=== PATIENT | male | born 1975 | race Caucasian/White ===

== ENCOUNTER 2016-08-12 12:14 | Emergency (ER) | payer OTHER ==
[~2016-08-12] VITALS: Ht 182.9 cm; Wt 131.5 kg
--- NOTE | 2016-08-12 12:25 | ED CARDIAC/CP/PALPITATIONS ---
History of Present Illness General Chief Complaint: Chest Pain Stated Complaint: CP Source: patient, family Exam Limitations: no limitations Vital Signs & Intake/Output Vital Signs & Intake/Output Vital Signs Date Time Temp Pulse Resp B/P Pulse O2 O2 Flow FiO2 Ox Delivery Rate 08/12 1441 98.2 75 16 136/78 98 Room Air 08/12 1308 71 158/67 08/12 1246 140/71 08/12 1241 75 18 143/93 08/12 1220 98.7 71 20 144/92 98 Room Air Allergies Coded Allergies: NO KNOWN ALLERGIES (08/12/16) Reconcile Medications Adalimumab (Humira Pen) 40 MG/0.8 ML PEN.IJ.KIT 1 SYR SC Q2W UNKNOWN ( Reported) Oxycodone HCl/Acetaminophen (Oxycodone-Acetaminophen 10-325) 10 MG-325 MG TABLET 1 TAB PO TID PAIN (Reported) Triage Note: PT TO ED C/O SUDDEN ONSET OF CHEST PAIN THIS AM AROUND 1000 WITH WAKING. WENT TO URGENT CARE AND WAS ADVISED TO COME TO ED FOR ABNORMAL EKG. C/O SOME SOB. PAIN DOES NOT RADIATE, DENIES N/V/D. EKG IN PROGRESS. Triage Nurses Notes Reviewed? yes HPI: Patient woke up this morning at 9:30 and noticed that he had a left sternal chest pressure. Patient states that the pain did not wake him up and that he just noticed it when he woke up. There is no radiation. Since then he is also began to develop a sharp pain just to the right side of the sternum. Again there is no radiation. There are no aggravating or mitigating factors. Patient went to a walk in center and had an EKG which was abnormal so sent in for evaluation. Patient denies any shortness of breath. There is no diaphoresis. There are no aggravating or mitigating factors. The chest pressure is rated as 4 out of 10 and this sharp chest pain is radiating a 5 out of 10. Past History Travel History Traveled to [place] past 21 day No Medical History Any Pertinent Medical History? see below for history Gastrointestinal: ulcerative colitis Musculoskeletal: chronic back pain Surgical History Surgical History: non-contributory Psychosocial History What is your primary language Ghanaian Tobacco Use: Quit >30 days ago ETOH Use: denies use Illicit Drug Use: denies illicit drug use Family History Hx Contributory? No Review of Systems Review of Systems Constitutional: Reports: no symptoms. EENTM: Reports: no symptoms. Respiratory: Reports: no symptoms. Cardiovascular: Reports: see HPI, chest pain. GI: Reports: no symptoms. Genitourinary: Reports: no symptoms. Musculoskeletal: Reports: no symptoms. Skin: Reports: no symptoms. Neurological/Psychological: Reports: no symptoms. Hematologic/Endocrine: Reports: no symptoms. Immunologic/Allergic: Reports: no symptoms. All Other Systems: Reviewed and Negative Physical Exam Physical Exam General Appearance: well developed/nourished, alert, awake, anxious, mild distress Head: atraumatic, normal appearance Eyes: Bilateral: PERRL, EOMI. Ears, Nose, Throat: normal pharynx, normal ENT inspection Neck: normal inspection, supple, full range of motion Respiratory: normal breath sounds, chest non-tender, no respiratory distress, lungs clear Cardiovascular: regular rate/rhythm, normal peripheral pulses Gastrointestinal: normal bowel sounds, soft, non-tender, no organomegaly Back: normal inspection, normal range of motion Extremities: normal inspection, normal capillary refill, normal range of motion, no edema Neurologic/Psych: no motor/sensory deficits, awake, alert, oriented x 3, normal gait, normal mood/affect Skin: intact, normal color, warm/dry Lymphatic: no anterior cervical juan carlos Core Measures ACS in differential dx? Yes ASA ordered for poss ACS? Yes-ordered Severe Sepsis Present: No Septic Shock Present: No Progress Differential Diagnosis: AMI, aortic dissection, atrial fibrillation, cholecystitis, costochondritis, musculoskeletal pain, myocarditis, pericarditis, pneumonia, pneumothorax, pulmonary embolism Plan of Care: Orders Procedure Date/time Status TROPONIN LEVEL 08/12 1534 Complete EKG 08/12 1534 Active EKG 08/12 1300 Active Telemetry/Assistant Food Service Director 08/12 1224 Active TROPONIN LEVEL 08/12 1224 Complete COMPREHENSIVE METABOLIC PANEL 08/12 1224 Complete CBC WITHOUT DIFFERENTIAL 08/12 1224 Complete EKG 08/12 1215 Active Laboratory Tests 08/12/16 1538: Troponin I < 0.01 08/12/16 1235: Anion Gap 14, Estimated GFR > 60, BUN/Creatinine Ratio 10.0, Glucose 93, Calcium 9.4, Total Bilirubin 0.8, AST 49, ALT 81 H, Alkaline Phosphatase 76, Troponin I < 0.01, Total Protein 7.9, Albumin 4.4, Globulin 3.5, Albumin/Globulin Ratio 1.3 , CBC w Diff NO MAN DIFF REQ, RBC 5.70, MCV 87.1, MCH 28.5, RDW 14.8 H, MPV 7.8 , Gran % 50.2, Lymphocytes % 36.8, Monocytes % 10.3 H, Eosinophils % 1.8, Basophils % 0.9, Absolute Granulocytes 4.1, Absolute Lymphocytes 3.0, Absolute Monocytes 0.8 H, Absolute Eosinophils 0.1, Absolute Basophils 0.1, PUBS MCHC 32.7 L Diagnostic Imaging: Viewed by Me: Radiology Read, CT Scan. Discussed w/RAD: Radiology Read, CT Scan. Radiology Impression: PATIENT: JONNY HOUSE PRESENT AGE: 41 PATIENT ACCOUNT NO: [id number] : 76 LOCATION: [facility] ORDERING PHYSICIAN: STEPHANIE AGUIRRE MD SERVICE DATE: 08/12/16 EXAM TYPE: CAT - CTA CHEST-PULMONARY EMBOLISM EXAMINATION: CT PULMONARY EMBOLISM STUDY CLINICAL INFORMATION: Chest pain and shortness of breath. COMPARISON: . TECHNIQUE: Contiguous helical images of the chest were obtained following the administration of IV contrast. Multiplanar reconstructions were performed. MIPS were obtained and reviewed. DLP: 624 mGy-cm. CONTRAST: 95 mL of Optiray 350 were administered without incident. FINDINGS: The heart is of normal size. There is no pericardial effusion. The great vessels are unremarkable. Specifically, there is no pulmonary arterial filling defect. There is no CT evidence for pulmonary embolism. There are no chest wall masses. Review of lung windows demonstrates that there are neither pleural effusions nor pneumothoraces. There are no consolidations. There are no pulmonary parenchymal nodules. Limited evaluation of the upper abdomen demonstrates that the liver is of normal size and diffuse decreased attenuation without focal lesions. There is a moderate-sized hiatal hernia. Normal adrenal glands are identified. There is a 5.2 cm cyst within the right kidney. IMPRESSION: No CT evidence for pulmonary embolism. Hepatic steatosis. Hiatal hernia. DICTATED BY: JOSÉ MIGUEL SIMMS MD DATE/ TIME DICTATED:08/12/161420 FOREST RANGER TECHNICIAN:JANINE DATE/TIME TRANSCRIBED: 08/12/161420 CONFIDENTIAL, DO NOT COPY WITHOUT APPROPRIATE AUTHORIZATION. < Electronically signed in Other Vendor System> SIGNED BY: JOSÉ MIGUEL SIMMS MD 08/12/16 1430 CXR Impression: PATIENT: JONNY HOUSE PRESENT AGE: 41 PATIENT ACCOUNT NO: [id number] : 76 LOCATION: [facility] ORDERING PHYSICIAN: STEPHANIE AGUIRRE MD SERVICE DATE: 08/12/16 EXAM TYPE: RAD - XRY-PORTABLE CHEST XRAY EXAMINATION: XR PORTABLE CHEST CLINICAL INFORMATION: Chest pain. COMPARISON: Chest 12/21/2008. TECHNIQUE: Portable AP view of the chest was obtained. FINDINGS: The lungs are hypoexpanded but clear. The heart size and pulmonary vascularity is normal. No gross bony abnormality seen. IMPRESSION: Unremarkable chest examination. No change from 12/21/2008. DICTATED BY: DEBRA LOPES MD DATE/TIME DICTATED:08/12/161332 FOREST RANGER TECHNICIAN:JANINE DATE/TIME TRANSCRIBED:08/12/161332 CONFIDENTIAL, DO NOT COPY WITHOUT APPROPRIATE AUTHORIZATION. <Electronically signed in Other Vendor System> SIGNED BY: DEBRA LOPES MD 08/12/16 1424 Initial ED EKG: SINUS RHYTHM WITH ISCHEMIC t-WAVE INVERSIONS ANTERIOR LATERALLY THIS IS NEW WHEN COMPARED TO HIS OLD ekg. Prior EKG: changed Repeat EKG: changed (RESOLVED t-WAVE INVERSIONS) Rhythm Strip: normal sinus rhythm Comments: Patient has been seen and evaluated by Dr. Alex. Patient will follow-up in the office. Departure Departure Disposition: HOME OR SELF CARE Condition: Stable Clinical Impression Primary Impression: Chest pain Referrals: LOUIS CASILLAS MD (PCP/Family) JAIRO ROBLES,Randy [facility] Additional Instructions: Take it easy and no strenuous activity. Follow-up with Dr. Alex this week. Take a baby aspirin every day and take the metoprolol as prescribed. Departure Forms: Customer Survey General Discharge Information Prescriptions: Current Visit Scripts Metoprolol Succ XL (Toprol XL) 1 TAB PO DAILY #30 TAB Critical Care Note Critical Care Note Critical Care Time: mins: (45 MIN)
[2016-08-12 12:48] LABS: ABSOLUTE BASOPHIL COUNT 0.1 /CUMM (0.0-0.2); ABSOLUTE EOSINOPHIL COUNT 0.1 /CUMM (0.0-0.7); ABSOLUTE GRANULOCYTE CT 4.1 /CUMM (1.4-6.5); ABSOLUTE MONOCYTE COUNT 0.8 /CUMM (0.10-0.60); BASOPHIL % 0.9 % (0.0-2.0); EOSINOPHIL % 1.8 % (0-5); GRANULOCYTE % 50.2 % (42.2-75.2); HEMATOCRIT 49.6 % (42-52); MEAN CORPUSCULAR HGB 28.5 PG (27.0-31.0); MEAN CORPUSCULAR HGB CONC 32.7 G/DL (33.0-37.0); MEAN CORPUSCULAR VOLUME 87.1 FL (80.0-94.0); MEAN PLATELET VOLUME 7.8 FL (7.4-10.4); PLATELET COUNT 244 /CUMM (130-400); RBC DISTRIBUTION WIDTH 14.8 % (11.5-14.5); WHITE BLOOD CELL COUNT 8.1 /CUMM (4.8-10.8)
--- NOTE | 2016-08-12 13:38 | RADIOLOGY REPORT ---
EXAMINATION: XR PORTABLE CHEST CLINICAL INFORMATION: Chest pain. COMPARISON: Chest 12/21/2008. TECHNIQUE: Portable AP view of the chest was obtained. FINDINGS: The lungs are hypoexpanded but clear. The heart size and pulmonary vascularity is normal. No gross bony abnormality seen. IMPRESSION: Unremarkable chest examination. No change from 12/21/2008.
--- NOTE | 2016-08-12 14:30 | CT SCAN REPORT ---
EXAMINATION: CT PULMONARY EMBOLISM STUDY CLINICAL INFORMATION: Chest pain and shortness of breath. COMPARISON: 12/21/2008. TECHNIQUE: Contiguous helical images of the chest were obtained following the administration of IV contrast. Multiplanar reconstructions were performed. MIPS were obtained and reviewed. DLP: 624 mGy-cm. CONTRAST: 95 mL of Optiray 350 were administered without incident. FINDINGS: The heart is of normal size. There is no pericardial effusion. The great vessels are unremarkable. Specifically, there is no pulmonary arterial filling defect. There is no CT evidence for pulmonary embolism. There are no chest wall masses. Review of lung windows demonstrates that there are neither pleural effusions nor pneumothoraces. There are no consolidations. There are no pulmonary parenchymal nodules. Limited evaluation of the upper abdomen demonstrates that the liver is of normal size and diffuse decreased attenuation without focal lesions. There is a moderate-sized hiatal hernia. Normal adrenal glands are identified. There is a 5.2 cm cyst within the right kidney. IMPRESSION: No CT evidence for pulmonary embolism. Hepatic steatosis. Hiatal hernia.
[2016-08-12] MEDS ORDERED: HUMIRA PEN40 MG/0.8 SC (14:40)
[2016-08-12] MEDS ORDERED: OXYCODONE-ACET1 EAC1 PO (14:41)
[2016-08-12] MEDS ORDERED: TOPROL XL25 M1 PO (16:36)
[2016-08-12 16:45] VITALS: BP 134/85
--- NOTE | 2016-08-12 18:42 | Cons- Cardiology ---
General Information and HPI Consulting Request Date of Consult: 08/12/16 Requested By: Neymar cook MD Reason for Consult: Chest pain Source of Information: patient, family History of Present Illness: Patient woke up this morning at 9:30 and noticed that he had a left sternal chest pressure. Patient states that the pain did not wake him up and that he just noticed it when he woke up. There is no radiation. Since then he is also began to develop a sharp pain just to the right side of the sternum. Again there is no radiation. There are no aggravating or mitigating factors. Patient went to a walk in center and had an EKG which was abnormal so sent in for evaluation. Patient denies any shortness of breath. There is no diaphoresis. There are no aggravating or mitigating factors. The chest pressure is rated as 4 out of 10 and this sharp chest pain is radiating a 5 out of 10. In the ER, the symptoms were dissipating slowly. THe patient was given TNG SL twice, about a half hour apart and the symptoms eventually abated after about 30 -45 minutes.. Subsequently he remained pain free. He denies any prior symptoms and has not had any exertional symptoms. Allergies/Medications Allergies: Coded Allergies: NO KNOWN ALLERGIES (08/12/16) Home Med List: Adalimumab (Humira Pen) 40 MG/0.8 ML PEN.IJ.KIT 1 SYR SC Q2W UNKNOWN ( Reported) Metoprolol Succ XL (Toprol XL) 25 MG TAB 1 TAB PO DAILY CHEST PAIN Oxycodone HCl/Acetaminophen (Oxycodone-Acetaminophen 10-325) 10 MG-325 MG TABLET 1 TAB PO TID PAIN (Reported) Past History Travel History Traveled to [place] past 21 day No Medical History Gastrointestinal: ulcerative colitis Musculoskeletal: chronic back pain Surgical History Surgical History: non-contributory Psychosocial History ETOH Use: denies use Illicit Drug Use: denies illicit drug use Exam & Diagnostic Data Vital Signs and I&O Vital Signs Date Time Temp Pulse Resp B/P Pulse O2 O2 Flow FiO2 Ox Delivery Rate 08/12 1645 62 134/85 08/12 1643 97.7 62 16 134/85 99 Room Air 08/12 1441 98.2 75 16 136/78 98 Room Air 08/12 1308 71 158/67 08/12 1300 Room Air 08/12 1246 140/71 08/12 1241 75 18 143/93 08/12 1220 98.7 71 20 144/92 98 Room Air Intake & Output 08/12 1600 08/12 0800 08/12 0000 08/11 1600 08/11 0808/11 0000 Intake Total Output Total Balance Patient 290 lb Weight Labs/Shahbaz Results: Laboratory Tests 08/12 08/12 1538 1235 Chemistry Sodium (137 - 145 mmol/L) 144 Potassium (3.5 - 5.1 mmol/L) 4.0 Chloride (98 - 107 mmol/L) 102 Carbon Dioxide (22 - 30 mmol/L) 28 Anion Gap (5 - 16) 14 BUN (9 - 20 mg/dL) 10 Creatinine (0.7 - 1.2 mg/dL) 1.0 Estimated GFR (>60 ml/min) > 60 BUN/Creatinine Ratio (7 - 25 %) 10.0 Glucose (65 - 99 mg/dL) 93 Calcium (8.4 - 10.2 mg/dL) 9.4 Total Bilirubin (0.2 - 1.3 mg/dL) 0.8 AST (17 - 59 U/L) 49 ALT (21 - 72 U/L) 81 H Alkaline Phosphatase (< 127 U/L) 76 Troponin I (<0.11 ng/ml) < 0.01 < 0.01 Total Protein (6.3 - 8.2 g/dL) 7.9 Albumin (3.5 - 5.0 g/dL) 4.4 Globulin (1.9 - 4.2 gm/dL) 3.5 Albumin/Globulin Ratio (1.1 - 2.2 %) 1.3 Hematology CBC w Diff NO MAN DIFF REQ WBC (4.8 - 10.8 /CUMM) 8.1 RBC (4.70 - 6.10 /CUMM) 5.70 Hgb (14.0 - 18.0 G/DL) 16.2 Hct (42 - 52 %) 49.6 MCV (80.0 - 94.0 FL) 87.1 MCH (27.0 - 31.0 PG) 28.5 RDW (11.5 - 14.5 %) 14.8 H Plt Count (130 - 400 /CUMM) 244 MPV (7.4 - 10.4 FL) 7.8 Gran % (42.2 - 75.2 %) 50.2 Lymphocytes % (20.5 - 51.1 %) 36.8 Monocytes % (1.7 - 9.3 %) 10.3 H Eosinophils % (0 - 5 %) 1.8 Basophils % (0.0 - 2.0 %) 0.9 Absolute Granulocytes (1.4 - 6.5 /CUMM) 4.1 Absolute Lymphocytes (1.2 - 3.4 /CUMM) 3.0 Absolute Monocytes (0.10 - 0.60 /CUMM) 0.8 H Absolute Eosinophils (0.0 - 0.7 /CUMM) 0.1 Absolute Basophils (0.0 - 0.2 /CUMM) 0.1 PUBS MCHC (33.0 - 37.0 G/DL) 32.7 L Diagnostic Data EKG Results NSR with anterolateral STT changes CXR Results FINDINGS: The lungs are hypoexpanded but clear. The heart size and pulmonary vascularity is normal. No gross bony abnormality seen. IMPRESSION: Unremarkable chest examination. No change from 12/21/2008. Other Results Chest CTA: IMPRESSION: No CT evidence for pulmonary embolism. Hepatic steatosis. Hiatal hernia. Assessment/Plan Assessment/Plan Assessment: 1. CHest pain syndrome 2. Abnormal ECG 3. Hiatal Hernia 4. Right renal cyst 5. History of prior rhabdomyolysis Recommendations: - Discussed at length with the patient and his mother. - I believe that the patient's symptoms are unlikely to be cardiac related but this cannot be totally excluded without further evaluation. - Await second troponis and followup ECG. - If these are normal, I believe that the patient can be safely discharged for further evaluation as an outpatient. - If discharged, the patient should be started on ASA 81 daily and Metoprolol 25 daily at discharge - Fasting lipid profile as outpatient - Outpatient echocardiogram and pharmacologic nuclear stress test to be scheduled - Outpatient followup with me. - The patient understands that he is to limit his activities until the testing is complete. He may return to work. - If there are any recurrent symptoms, the patient will return to the ER. - Script for TNG 0.4 mg SL tabs given. Consult Acknowledgment - Thank you for your consult request.
== END 2016-08-12 16:54 ==
LOC: ERH 12:14
PROVIDERS: Emergency Medicine
DX: R07.89 Other chest pain (principal)
CPT/HCPCS: 93005; 93010; J3490

== ENCOUNTER 2016-08-14 08:05 | Observation (INO) | payer OTHER ==
[~2016-08-14] VITALS: Ht 182.9 cm; Wt 131.5 kg
[~2016-08-14 08:05] MED LIST: HUMIRA PEN40 MG/0.8 SC; OXYCODONE-ACET1 EAC1 PO; TOPROL XL25 M1 PO
--- NOTE | 2016-08-14 08:10 | NUR ---
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 DENIES SOB. +NAUSEA. EKG IN PROGRESS.
--- NOTE | 2016-08-14 08:27 | NUR ---
PT STATES HIS PAIN HAS SUBSIDED AT THIS TIME PT IS SINUS ON THE MONITOR HR 68
--- NOTE | 2016-08-14 08:29 | ED CARDIAC/CP/PALPITATIONS ---
History of Present Illness General Chief Complaint: Chest Pain Stated Complaint: CP Source: patient, old records Exam Limitations: no limitations Vital Signs & Intake/Output Vital Signs & Intake/Output Vital Signs Date Time Temp Pulse Resp B/P Pulse O2 O2 Flow FiO2 Ox Delivery Rate 08/15 0800 Room Air 08/15 0800 98.3 60 18 114/70 95 Room Air 08/14 2346 97.8 64 20 104/68 97 Room Air 08/14 1603 98.3 63 20 100/74 98 Room Air 08/14 1508 58 18 120/75 97 Room Air 08/14 1317 97.0 72 20 111/70 96 Room Air 08/14 1229 97.6 08/14 1209 99.0 80 20 121/73 96 Room Air 08/14 1149 97.8 69 16 128/75 98 Room Air 08/14 1146 97.8 08/14 1126 80 143/78 08/14 1111 97.8 70 20 94 Room Air 08/14 0959 97.0 80 18 124/68 96 Room Air ED Intake and Output 08/15 0000 08/14 1200 Intake Total 400 0 Output Total Balance 400 0 Intake, Oral 400 0 Patient 290 lb 290 lb Weight Allergies Coded Allergies: NO KNOWN ALLERGIES (08/12/16) Triage Note: 41 Y/O MALE C/O L SIDED CHEST PAIN; 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 WAS MOHANYANET'D IN ED SAT FOR SAME AND STATES ACCOUNTANT COST WAS SUPPOSED TO CALL HIM TODAY FOR F/U. DENIES SOB. +NAUSEA. EKG IN PROGRESS. Triage Nurses Notes Reviewed? yes HPI: Patient is a 41 year old male presents complaining of chest pain. Pain onset approximately 1.5 hours ago. Pain lasted for approximately 45 minutes then resolved. Pain is currently 0 out of 10. No exacerbating factors at that time Patient took 81 mg of aspirin after the onset of the pain. Associated nausea and headache. Patient was seen in the emergency department 2 days ago for similar symptoms. Patient had 2 troponins, a CTA pulmonary embolism rule out, cardiology consultation by Dr. Alex. Patient was administered metoprolol in the emergency department and provided a prescription. Patient reports that he was vomiting throughout Sunday evening so he did not take the metoprolol again. Patient denies dyspnea, palpitations, lower extremity pain/swelling, cocaine use. Patient's grandfather with history of coronary artery disease, patient believes that his grandfather was elderly at the onset of his heart disease. (GUEVARA SCHREIBER) Reconcile Medications Adalimumab (Humira Pen) 40 MG/0.8 ML PEN.IJ.KIT 1 SYR SC Q2W UNKNOWN ( Reported) Aspirin (Aspirin*) 81 MG TAB.CHEW 1 TAB PO DAILY heart (Reported) Metoprolol Succ XL (Toprol XL) 25 MG TAB 1 TAB PO DAILY CHEST PAIN Oxycodone HCl/Acetaminophen (Oxycodone-Acetaminophen 10-325) 10 MG-325 MG TABLET 1 TAB PO TID PAIN (Reported) (LIZETTE ROBLES,DENISE) Past History Travel History Traveled to [place] past 21 day No Medical History Any Pertinent Medical History? see below for history Neurological: NONE EENT: NONE Cardiovascular: NONE Respiratory: NONE Gastrointestinal: hiatal hernia, ulcerative colitis Hepatic: NONE Renal: NONE Musculoskeletal: chronic back pain Psychiatric: NONE Endocrine: NONE Blood Disorders: NONE Cancer(s): NONE HOME INSPECTOR/Reproductive: NONE Surgical History Surgical History: non-contributory Psychosocial History What is your primary language Danish Tobacco Use: Quit >30 days ago Family History Hx Contributory? No (GUEVARA SCHREIBER) Review of Systems Review of Systems Constitutional: Denies: chills, fever. EENTM: Reports: no symptoms. Respiratory: Denies: cough, short of breath. Cardiovascular: Reports: see HPI. GI: Reports: nausea (none currently), vomiting (none currently). Genitourinary: Reports: no symptoms. Musculoskeletal: Reports: no symptoms. Skin: Reports: no symptoms. Neurological/Psychological: Reports: no symptoms, headache (none currently). Hematologic/Endocrine: Reports: no symptoms. Immunologic/Allergic: Reports: no symptoms. (GUEVARA SCHREIBER) Physical Exam Physical Exam General Appearance: alert, awake Head: atraumatic, normal appearance Eyes: Bilateral: normal appearance, PERRL, EOMI. Ears, Nose, Throat: normal pharynx, normal ENT inspection, hearing grossly normal Neck: normal inspection, supple, full range of motion Respiratory: normal breath sounds, chest non-tender, no respiratory distress, lungs clear Cardiovascular: regular rate/rhythm (no appreciable murmur) Peripheral Pulses: 2+ radial (R), 2+ radial (L) Gastrointestinal: mild left upper quadrant tenderness Back: normal inspection, normal range of motion Extremities: normal inspection, normal capillary refill, normal range of motion, no edema Neurologic/Psych: no motor/sensory deficits, awake, alert, oriented x 3, normal gait, normal mood/affect Skin: intact, normal color, warm/dry Core Measures ACS in differential dx? Yes ASA ordered for poss ACS? Yes-ordered Severe Sepsis Present: No Septic Shock Present: No (CINDY CATHERINE,GUEVARA) Progress Differential Diagnosis: AMI, aortic dissection, atrial fibrillation, cholecystitis, costochondritis, hyperventilation, musculoskeletal pain, myocarditis, pancreatitis, pericarditis, pneumonia, pneumothorax, pulmonary embolism, PUD/GERD, unstable angina, HIATAL HERNIA Plan of Care: Orders Procedure Date/time Status Nothing by Mouth 08/15 B Active STRESS TEST W/NUCLEAR IMAGING 08/15 0800 Active LIPID PANEL 08/15 0600 Complete CBC WITHOUT DIFFERENTIAL 08/15 0600 Complete BASIC ELECTROLYTES PLUS BUN&CR 08/15 0600 Complete Heart Healthy Diet 08/14 L Complete TROPONIN LEVEL 08/14 2030 Complete EKG 08/14 2030 Active Teach/Educate 08/14 1557 Active Pain Treatment and Response 08/14 1557 Active Nutritional Intake, Monitor 08/14 1557 Active Isolation 08/14 1557 Active Patient Care Conference 08/14 1557 Active Activity/Ambulation 08/14 1557 Active TROPONIN LEVEL 08/14 1430 Complete EKG 08/14 1430 Active Pathway - chart 08/14 0957 Active Pathway - chart 08/14 0949 Active Intake & Output 08/14 0828 Active THYROID STIMULATING HORMONE 08/14 0822 Complete CREATINE PHOSPHOKINASE 08/14 0822 Complete Saline Lock 08/14 UNK Active House Staff 08/14 UNK Active Lab Add-on Test 08/14 UNK Active VTE Mechanical Prophylaxis 08/14 UNK Active Current Medications Sig/Godwin Start time Last Medication Dose Stop Time Status Admin Metoprolol Succinate 25 MG DAILY 08/15 1000 AC (Toprol XL) Laboratory Tests 08/15/16 0645: Anion Gap 9, Estimated GFR > 60, BUN/Creatinine Ratio 14.4, Triglycerides 146, Cholesterol 163, LDL Cholesterol, Calc 106, HDL Cholesterol 28 L, Cholesterol/ HDL Ratio 6 H, CBC w Diff NO MAN DIFF REQ, RBC 5.33, MCV 87.0, MCH 28.5, RDW 14.7 H, MPV 7.8, Gran % 49.1, Lymphocytes % 37.5, Monocytes % 10.3 H, Eosinophils % 2.3, Basophils % 0.8, Absolute Granulocytes 4.1, Absolute Lymphocytes 3.1, Absolute Monocytes 0.9 H, Absolute Eosinophils 0.2, Absolute Basophils 0.1, PUBS MCHC 32.8 L 08/14/16 2030: Troponin I < 0.01 08/14/16 1430: Troponin I < 0.01 08/14/2016 9:03:44 AM: Discussed with Dr. Lovell covering for Dr. Alex: Recommends putting patient in for telemetry observation, serial EKGs, serial cardiac enzymes, obtain a stress test. 08/14/2016 9:31:39 AM: Results discussed with patient. Plan for telemetry observation discussed with the patient and his . Patient agreeable to plan. (GUEVARA SCHREIBER) Initial ED EKG: normal axis, normal intervals, normal p-waves, normal QRS complex, normal sinus rhythm, nonspecific ST T wave chg, no acute changes compared to previous ekg Prior EKG: unchanged Rhythm Strip: normal sinus rhythm (GUEVARA SCHREIBER) Departure Departure Time of Disposition: 926 Disposition: STILL A PATIENT Condition: Stable Clinical Impression Primary Impression: Chest pain Qualifiers: Chest pain type: unspecified Qualified Code: R07.9 - Chest pain, unspecified Referrals: LOUIS CASILLAS MD (PCP/Family) Departure Forms: Customer Survey General Discharge Information Observation Note Spoke With: ALYSA LOVELL MD Physician Advisor Notified: CHRISTINE ROBLES,CARLOS [address] Place Patient In: Non-ED OBS Care Area (consulted Dr. Baker) Rationale for Observation: My rational for observation is as follows: serial ekg, serial troponins, stress test. (GUEVARA SCHREIBER) PA/STRATEGIES ANALYST Co-Sign Statement Statement: ED Attending supervision documentation- [] I saw and evaluated the patient. I have also reviewed all the pertinent lab results and diagnostic results. I agree with the findings and the plan of care as documented in the PA's/STRATEGIES ANALYST's documentation. [X] I have reviewed the ED Record and agree with the PA's/STRATEGIES ANALYST's documentation. [] Additions or exceptions (if any) to the PAs/STRATEGIES ANALYST's note and plan are summarized below: [] (LIZETTE ROBLES,DENISE) Critical Care Note Critical Care Note Critical Care Time: non-applicable (CINDY CATHERINE,GUEVARA)
[2016-08-14 08:40] LABS: ABSOLUTE BASOPHIL COUNT 0 /CUMM (0.0-0.2); ABSOLUTE EOSINOPHIL COUNT 0.2 /CUMM (0.0-0.7); ABSOLUTE GRANULOCYTE CT 3.4 /CUMM (1.4-6.5); ABSOLUTE LYMPH COUNT 3.1 /CUMM (1.2-3.4); ABSOLUTE MONOCYTE COUNT 0.7 /CUMM (0.10-0.60); BASOPHIL % 0.7 % (0.0-2.0); EOSINOPHIL % 2.3 % (0-5); HEMATOCRIT 46.4 % (42-52); MEAN CORPUSCULAR HGB 28.9 PG (27.0-31.0); MEAN CORPUSCULAR HGB CONC 33.5 G/DL (33.0-37.0); MEAN CORPUSCULAR VOLUME 86.2 FL (80.0-94.0); MEAN PLATELET VOLUME 7.7 FL (7.4-10.4); PLATELET COUNT 221 /CUMM (130-400); RBC DISTRIBUTION WIDTH 14.3 % (11.5-14.5); RED BLOOD CELL CT 5.39 /CUMM (4.70-6.10); WHITE BLOOD CELL COUNT 7.3 /CUMM (4.8-10.8)
--- NOTE | 2016-08-14 09:04 | NUR ---
PT TOOK ASA 81 MG THIS AM GIVEN ADDITIONAL ASA RESTING COMFROTABLY AT THIS TIME DENIES PAIN
[2016-08-14] MEDS ORDERED: ASPIRIN81 M4 PO (09:39)
--- NOTE | 2016-08-14 09:41 | History & Physical ---
[facility] 08[facility] 0940: General Information and HPI MD Statement: I have seen and personally examined JONNY HOUSE and documented this H&P. The patient is a 41 year old M who presented with a patient stated chief complaint of [Chest pain]. Source of Information: patient, old records Exam Limitations: no limitations History of Present Illness: is a 41 yo man with PMHx. of ulcerative colitis, hiatal hernia, chronic back pain presented to ED with a c/o of chest pain. Patient report that his chest pain started today at 7:30 am while he was driving to work, he was't involved in any sternous activity, pain is about 8/10 in severity, pressure on the left side and sharp on left, radiating to the back, associated with mild SOB, clammy hand, overnight he felt heart racing and sweating. He denies fever, chills, lower extrimity edema, no dizziness and there is no change in urinary or bowel habits. Patient was at ED 2 day s ago at that time was seen by Dr. Gill, he was prescribed Toprol xl and sent home also on aspirin, CTA and CXR 2 days ago was negative. Allergies/Medications Allergies: Coded Allergies: NO KNOWN ALLERGIES (08/12/16) Compliance With Home Meds: GOOD Past History Travel History Traveled to [place] past 21 day No Medical History Neurological: NONE EENT: NONE Cardiovascular: NONE Respiratory: NONE Gastrointestinal: hiatal hernia, ulcerative colitis Hepatic: NONE Renal: NONE Musculoskeletal: chronic back pain Psychiatric: NONE Endocrine: NONE Blood Disorders: NONE Cancer(s): NONE PHLEBOTOMY SPECIALIST/Reproductive: NONE Surgical History Surgical History: non-contributory Past Family/Social History Family History Relations & Conditions if any Relation not specified for: *No pertinent family history Review of Systems Review of Systems Constitutional: Reports: diaphoresis. EENTM: Reports: no symptoms. Cardiovascular: Reports: chest pain. Respiratory: Reports: no symptoms. GI: Reports: no symptoms. Genitourinary: Reports: no symptoms. Musculoskeletal: Reports: no symptoms. Skin: Reports: no symptoms. Exam & Diagnostic Data Last 24 Hrs of Vital Signs/I&O Vital Signs Date Time Temp Pulse Resp B/P Pulse O2 O2 Flow FiO2 Ox Delivery Rate 08/14 0959 97.0 80 18 124/68 96 Room Air 08/14 0819 97.0 74 22 136/81 99 Room Air 08/14 0808 97.8 69 16 143/89 100 Room Air Intake & Output 08/14 1600 08/14 0800 08/14 0000 Intake Total 0 Output Total Balance 0 Intake, Oral 0 Patient 290 lb Weight Physical Exam General Appearance Alert, Oriented X3, Cooperative, No Acute Distress Skin No Rashes, No Breakdown, No Significant Lesion HEENT Atraumatic, PERRLA, EOMI, Mucous Membr. moist/pink Neck Supple, No JVD Cardiovascular Regular Rate, Normal S1, Normal S2 Lungs Clear to Auscultation, Normal Air Movement Abdomen Normal Bowel Sounds, Soft, No Tenderness Extremities No Edema, Normal Pulses Vascular Normal Pulses, Pulses Symmetrical Last 24 Hrs of Labs/Shahbaz: Laboratory Tests 08/14/16 08: Anion Gap 13, Estimated GFR > 60, BUN/Creatinine Ratio 10.9, Glucose 101 H, Calcium 9.2, Total Bilirubin 0.8, AST 50, ALT 87 H, Alkaline Phosphatase 70, Troponin I < 0.01, Total Protein 7.2, Albumin 3.9, Globulin 3.3, Albumin/ Globulin Ratio 1.2, CBC w Diff NO MAN DIFF REQ, RBC 5.39, MCV 86.2, MCH 28.9, RDW 14.3, MPV 7.7, Gran % 46.0, Lymphocytes % 41.7, Monocytes % 9.3, Eosinophils % 2.3, Basophils % 0.7, Absolute Granulocytes 3.4, Absolute Lymphocytes 3.1, Absolute Monocytes 0.7 H, Absolute Eosinophils 0.2, Absolute Basophils 0, PUBS MCHC 33.5 Diagnostic Data CXR Results 2 days ago was unremarkable Other Results CTA at 08/12/2016 Unremarkable Assessment/Plan Assessment: 41 YO man with PMHx. of ulcerative colitis, chronic back pain, presented to ED with chest pain. Assessment: Chest pain syndrome needs to r/o stable angina Ulcerative colitis Chronic back pain Plan: -Will admitt the patient to cardiology floor under observation -Will trend Trponin and EKG -Patient report that he is able to exercise. Exercise stress test tomorrow -Will continue Toprol Xl and aspirin and percocet -Piece Dyer to see the patient Heart healthy diet Npo after midnight for stress test Lovenox for DVT ppx Full code As Ranked By This Provider Problem List: 1. Chest pain Qualifiers Chest pain type: unspecified Qualified Code: R07.9 - Chest pain, unspecified Core Measures/Miscellaneous Acute Coronary Syndrome ACS Diagnosis: No Cerebrovascular Accident CVA/TIA Diagnosis: No Congestive Heart Failure CHF Diagnosis: No Venous Thromboembolism VTE Risk Factors: Acute medical illness, Age > 40 No [facility] VTE prophylaxis d/t: VTE low risk, No contraindications No VTE Pharm Prophylaxis d/t: No contraindications VTE Diagnosis: No VTE Type: NONE VTE Confirmed by (Test): NONE Severe Sepsis Severe Sepsis Present: No Septic Shock Septic Shock Present: No Miscellaneous Documentation Attending Case Discussed With: Randy GILL MD Primary Care Physician: LOUIS CASILLAS MD Patient sees these Specialists Returned Materials Inspector: Level of Patient Care: Telemetry ALYSA LOVELL MD 08/14/16 6207: General Information and HPI Allergies/Medications Home Med list Adalimumab (Humira Pen) 40 MG/0.8 ML PEN.IJ.KIT 1 SYR SC Q2W UNKNOWN ( Reported) Aspirin (Aspirin*) 81 MG TAB.CHEW 1 TAB PO DAILY heart (Reported) Metoprolol Succ XL (Toprol XL) 25 MG TAB 1 TAB PO DAILY CHEST PAIN Morphine Sulfate 15 MG TABLET 1 TAB PO TIDPRN CHRONIC LOW BACK PAIN (Reported ) Oxycodone HCl/Acetaminophen (Percocet 10-325 MG Tablet) 10 MG-325 MG TABLET 1 TAB PO 4 TIMES/DAY CHRONIC LOW BACK PAIN (Reported) Attending MD Review Statement Attending Statement Attending MD Statement: examined this patient, discuss w/resident/PA/SUPERINTENDENT MECHANICAL, agreed w/resident/PA/SUPERINTENDENT MECHANICAL, discussed with family, reviewed EMR data (avail), discussed with nursing, reviewed images, amended to note Attending Assessment/Plan: The patient is a 41-year-old male with history of ulcerative colitis, hiatal hernia, chronic back pain who presents with complaint of chest pain. He was previously evaluated several days ago emergency department chest pain, discharged home with a prescription for sublingual nitroglycerin. He now presents with recurrent chest discomfort, beginning while he was in the car driving to work. The pain was an 8/10 in severity and is a pressure sensation on the left side radiating to the back associated with mild shortness of breath. He noted racing of his heart and diaphoresis. No syncope. No orthopnea. No lightheadedness or dizziness. No nausea or vomiting. Review of systems: No fever. No chills. No rash. No tremor. All other systems are reviewed and are noted to be negative. Physical examination: Gen: The patient is in no acute distress HEENT: Normal nose, ears, and oropharynx. Pupils equal bilaterally. Conjunctiva normal. Neck: Supple with no JVD, no masses, and no thyromegaly Lungs: Clear to auscultation with normal respiratory effort Heart: RRR, S1, S2, no murmurs. No peripheral edema, 2+ pulses in the lower extremities bilaterally Abdomen: Soft, nontender, no masses. No hepatomegaly. No splenomegaly Extremities: No clubbing or cyanosis. Normal muscle strength in the upper and lower extremities. Skin: Normal skin turgor with no skin ulcers or lesions noted. Neuro: Cranial nerves intact. Sensation intact Psych: Alert and oriented 3 with appropriate affect EKG tracing is independently reviewed, and reveals normal sinus rhythm with interventricular conduction delay and Q-waves CTA chest August 12, 2016: No CT evidence for pulmonary embolism. Hepatic steatosis. Hiatal hernia. Assessment: 1. Chest pain, rule out acute coronary syndrome 2. Abnormal EKG Plan: - placed on observation. - check serial troponin to rule out myocardial infarction - Stress test to be arranged.
--- NOTE | 2016-08-14 11:29 | NUR ---
PT REPORTS THAT HE IS HAVING CHEST PAIN AND HIS RIGHT LEG IS NUMB HOUSE STAFF PAGED
--- NOTE | 2016-08-14 11:46 | NUR ---
PT STATES CHEST PAIN SUBSIDED AFTER SL NITRO PT GIVEN APAP FOR PEÑA PT STATES THE NUMBNESS IN HIS LEG WENT AWAY PRIOR TO GETTING NITRO CHEST PAIN CAME ON AFTER PT HAD EATEN
--- NOTE | 2016-08-14 12:30 | NUR ---
PT OFFERS NO COMPLAINTS REMAINS SINUS ON THE MONITOR WITH HR IN THE 60'S
--- NOTE | 2016-08-14 13:56 | NUR ---
PT ADMITTED TO ROOM 184-1
--- NOTE | 2016-08-14 14:21 | NUR ---
PT RESTING REPEAT EKG COMPLETED AND SHOWN TO DR. BAUER REPORT TROP DRAWN BY YENIFER MEJIA
--- NOTE | 2016-08-14 14:27 | NUR ---
FLOOR TO CALL BACK FOR REPORT
--- NOTE | 2016-08-14 14:52 | NUR ---
HOUSE STAFF PAGED TO VIEW RECENT EKG
--- NOTE | 2016-08-14 15:23 | NUR ---
REPORT GIVEN TO NEHEMIAS HARRISMATCH UP WORKER CALLED
--- NOTE | 2016-08-14 15:30 | NUR ---
PT AMBULATED TO BR GAIT STEADY OFFERS NO COMPLAINTS
[2016-08-14 16:03] VITALS: BP 100/74
[2016-08-14 23:46] VITALS: BP 104/68
--- NOTE | 2016-08-15 06:40 | PN- Housestaff ---
Subjective Follow-up For: Chest pain Complaints: no complaints, pain scale 1/10 Tele-Events Since Last Visit: Sinus rhythm, heart rate ranging from 62-66, one reading of 44 at 1 AM. Subjective: I followed up and examined the patient today. He is resting comfortably in bed, is alert, oriented, does not have any complaints, mentions that his chest pain has dropped down significantly to 1/10. VSS. Telemetry recording as noted above, no event. Review of Systems Constitutional: Reports: no symptoms. Objective Last 24 Hrs of Vital Signs/I&O Vital Signs Date Time Temp Pulse Resp B/P Pulse O2 O2 Flow FiO2 Ox Delivery Rate 08/15 0800 Room Air 08/15 0800 98.3 60 18 114/70 95 Room Air 08/14 2346 97.8 64 20 104/68 97 Room Air 08/14 1603 98.3 63 20 100/74 98 Room Air 08/14 1508 58 18 120/75 97 Room Air 08/14 1317 97.0 72 20 111/70 96 Room Air 08/14 1229 97.6 08/14 1209 99.0 80 20 121/73 96 Room Air 08/14 1149 97.8 69 16 128/75 98 Room Air 08/14 1146 97.8 08/14 1126 80 143/78 08/14 1111 97.8 70 20 94 Room Air 08/14 0959 97.0 80 18 124/68 96 Room Air Intake & Output 08/15 1600 08/15 0800 08/15 0000 Intake Total 0 400 Output Total Balance 0 400 Intake, Oral 0 400 Physical Exam General Appearance: Alert, Oriented X3, Cooperative, No Acute Distress Other Physical Findings: Skin No Rashes, No Breakdown, No Significant Lesion HEENT Atraumatic, PERRLA, EOMI, Mucous Membr. moist/pink Neck Supple, No JVD Cardiovascular Regular Rate, Normal S1, Normal S2 Lungs Clear to Auscultation, Normal Air Movement Abdomen Normal Bowel Sounds, Soft, No Tenderness Extremities No Edema, Normal Pulses Vascular Normal Pulses, Pulses Symmetrical Current Medications: Current Medications Sig/Godwin Start time Last Medication Dose Route Stop Time Status Admin Acetaminophen 0 .STK-MED ONE 08/14 1140 DC PO Acetaminophen 650 MG Q6P PRN 08/14 1000 AC 08/14 PO 1146 Aspirin 81 MG DAILY 08/15 1000 AC 08/15 PO 0903 Enoxaparin Sodium 0 .STK-MED ONE 08/14 1224 DC SC Enoxaparin Sodium 40 MG DAILY 08/14 1000 AC 08/14 SC 1223 Metoprolol Succinate 25 MG DAILY 08/15 1000 AC PO Morphine Sulfate 15 MG AT BEDTIME 08/14 2200 AC 08/14 PO 2222 Morphine Sulfate 2 MG Q24 PRN 08/14 1000 DC IV Nitroglycerin 0.4 MG ONCE ONE 08/14 1145 DC 08/14 SL 08/14 1146 1139 Nitroglycerin 0 .STK-MED ONE 08/14 1135 DC SL Oxycodone HCl 5 MG AT BEDTIME 08/14 2199 AC 08/14 PO 222 Oxycodone HCl 5 MG ONCE ONE 08/14 1914 DC 08/14 PO 08/14 Oxycodone/ 1 TAB Q6P PRN 08/14 1000 AC 08/14 Acetaminophen PO 1914 Last 24 Hrs of Lab/Shahbaz Results Last 24 Hrs of Labs/Mics: Laboratory Tests 08/15/16 0645: Anion Gap 9, Estimated GFR > 60, BUN/Creatinine Ratio 14.4, Triglycerides 146, Cholesterol 163, LDL Cholesterol, Calc 106, HDL Cholesterol 28 L, Cholesterol/ HDL Ratio 6 H, CBC w Diff NO MAN DIFF REQ, RBC 5.33, MCV 87.0, MCH 28.5, RDW 14.7 H, MPV 7.8, Gran % 49.1, Lymphocytes % 37.5, Monocytes % 10.3 H, Eosinophils % 2.3, Basophils % 0.8, Absolute Granulocytes 4.1, Absolute Lymphocytes 3.1, Absolute Monocytes 0.9 H, Absolute Eosinophils 0.2, Absolute Basophils 0.1, PUBS MCHC 32.8 L 08/14/16 2030: Troponin I < 0.01 08/14/16 1430: Troponin I < 0.01 Assessment/Plan Assessment: 41 yo man with PMHx of ulcerative colitis, chronic back pain s/p multiple surguries, presented to ED with chest pain since yesterday morning. Assessment: Chest pain syndrome, ruling out ACS, stable angina Ulcerative colitis, in control Chronic back pain, adequately managed, visits pain management clininc Plan: -Continue telemetry observation observation -Serial Trponin and EKG was negative, thus ruling out ACS -Awaiting exercise stress test today. If found normal, can be discharged today. -Will continue Toprol Xl and aspirin and percocet -Hand Ornament Maker consult appreciated #Chronic pain management [place] was checked on the patient (08/16/2015 08/15/2016) and was found to have two prescribers, one pharmacy, and the last prescription filled was on 07/31/16 for percocet 10-325 and morphine IR 15mg. Thus, we will continue the plan and not give any new prescriptions. Discussed with attending Dr Souza. Heart healthy diet Currently Npo since midnight for stress test today Lovenox for DVT ppx Full code Problem List: 1. Chest pain Pain Ratin Pain Location: chest Pain Goal: Pain 4 or less Pain Plan: prn Tomorrow's Labs & Rationales: -
[2016-08-15 07:48] LABS: ABSOLUTE BASOPHIL COUNT 0.1 /CUMM (0.0-0.2); ABSOLUTE EOSINOPHIL COUNT 0.2 /CUMM (0.0-0.7); ABSOLUTE GRANULOCYTE CT 4.1 /CUMM (1.4-6.5); ABSOLUTE LYMPH COUNT 3.1 /CUMM (1.2-3.4); ABSOLUTE MONOCYTE COUNT 0.9 /CUMM (0.10-0.60); BASOPHIL % 0.8 % (0.0-2.0); EOSINOPHIL % 2.3 % (0-5); GRANULOCYTE % 49.1 % (42.2-75.2); HEMATOCRIT 46.4 % (42-52); MEAN CORPUSCULAR HGB 28.5 PG (27.0-31.0); MEAN CORPUSCULAR HGB CONC 32.8 G/DL (33.0-37.0); MEAN PLATELET VOLUME 7.8 FL (7.4-10.4); PLATELET COUNT 204 /CUMM (130-400); RBC DISTRIBUTION WIDTH 14.7 % (11.5-14.5); RED BLOOD CELL CT 5.33 /CUMM (4.70-6.10); WHITE BLOOD CELL COUNT 8.4 /CUMM (4.8-10.8)
[2016-08-15 08:00] VITALS: BP 114/70
--- NOTE | 2016-08-15 10:04 | Patient Discharge Instructions ---
Discharge Instructions General Discharge Information You had these procedures: Excercise stress test on 08/15/16 Special Instructions: Please follow-up with Pin Or Clip Fastener within seven days of discharge. Please follow-up with your PCP within seven-ten days of discharge. Please return to emergency if symptoms worsen. Diet Continue normal diet: No Recommended Diet: Heart Healthy Activity Full Activity/No Limits: Yes Acute Coronary Syndrome Inclusion Criteria At DC or during hospital stay patient has or had the following: ACS DIAGNOSIS No Discharge Core Measures Meds if any: Prescribed or Continued at Discharge Meds if any: NOT Prescribed or Continued at Discharge Congestive Heart Failure Inclusion Criteria At DC or during hospital stay patient has or had the following: CHF DIAGNOSIS No Discharge Core Measures Meds if any: Prescribed or Continued at Discharge Meds if any: NOT Prescribed or Continued at Discharge Cerebrovascular accident Inclusion Criteria At DC or during hospital stay patient has or had the following: CVA/TIA Diagnosis No Discharge Core Measures Meds if any: Prescribed or Continued at Discharge Meds if any: NOT Prescribed or Continued at Discharge Venous thromboembolism Inclusion Criteria VTE Diagnosis No VTE Type NONE VTE Confirmed by (Test) NONE Discharge Core Measures - Per Current guidelines, there needs to be overlap - treatment for the first 5 days of Warfarin therapy. - If discharged on Warfarin prior to 5 days of - overlap therapy, the patient will need to be - assessed for post discharge needs including - *Post discharge parental anticoagulation - *Warfarin and/or parental anticoagulation education - *Follow up date to check INR post discharge At least 5 days overlap therapy as Inpatient No Meds if any: Prescribed or Continued at Discharge Note: Overlap Therapy is Warfarin and Anticoagulant Meds if any: NOT Prescribed or Continued at Discharge
[2016-08-15] MEDS ORDERED: PERCOCET 10-321 EACH PO (10:45)
[2016-08-15] MEDS ORDERED: MORPHINE SULFAT15 M4 PO (10:51)
--- NOTE | 2016-08-15 11:14 | PN- Cardiology ---
Subjective Subjective: The patient is feeling better. No chest pain. No shortness of breath. No palpitations. No diaphoresis. No lightheadedness or dizziness. No nausea or vomiting. Objective Vital Signs and I&Os Vital Signs Date Time Temp Pulse Resp B/P Pulse O2 O2 Flow FiO2 Ox Delivery Rate 08/15 0800 Room Air 08/15 0800 98.3 60 18 114/70 95 Room Air 08/14 2346 97.8 64 20 104/68 97 Room Air 08/14 1603 98.3 63 20 100/74 98 Room Air 08/14 1508 58 18 120/75 97 Room Air 08/14 1317 97.0 72 20 111/70 96 Room Air 08/14 1229 97.6 08/14 1209 99.0 80 20 121/73 96 Room Air 08/14 1149 97.8 69 16 128/75 98 Room Air 08/14 1146 97.8 08/14 1126 80 143/78 08/14 1111 97.8 70 20 94 Room Air Intake & Output 08/15 1600 08/15 0800 08/15 0000 08/14 1600 08/14 0800 08/14 0000 Intake Total 0 400 0 Output Total Balance 0 400 0 Intake, Oral 0 400 0 Patient 290 lb Weight Physical Exam: Gen: NAD HEENT: normal Lungs: clear to auscultation, normal resp. effort Heart: RRR, S1, S2, no murmurs Abdomen: Soft, nontender, no masses Extremities: No clubbing, cyanosis, or edema. Neuro: Alert and oriented x 3, cranial nerves intact Current Medications: Current Medications Sig/Godwin Start time Last Medication Dose Route Stop Time Status Admin Acetaminophen 0 .STK-MED ONE 08/14 1140 DC PO Acetaminophen 650 MG Q6P PRN 08/14 1000 AC 08/14 PO 1146 Aspirin 81 MG DAILY 08/15 1000 AC 08/15 PO 0903 Enoxaparin Sodium 0 .STK-MED ONE 08/14 1224 DC SC Enoxaparin Sodium 40 MG DAILY 08/14 1000 AC 08/14 SC 1223 Metoprolol Succinate 25 MG DAILY 08/15 1000 AC PO Morphine Sulfate 15 MG AT BEDTIME 08/14 2200 AC 08/14 PO 2222 Morphine Sulfate 2 MG Q24 PRN 08/14 1000 DC IV Nitroglycerin 0.4 MG ONCE ONE 08/14 1145 DC 08/14 SL 08/14 1146 1139 Nitroglycerin 0 .STK-MED ONE 08/14 1135 [facility] Oxycodone HCl 5 MG AT BEDTIME 08/14 2199 AC 08/14 PO 2221 Oxycodone HCl 5 MG ONCE ONE 08/14 1914 DC 08/14 PO 08/14 Oxycodone/ 1 TAB Q6P PRN 08/14 1000 AC 08/14 Acetaminophen PO 1914 Results Last 48 Hrs of Labs/Mics: Laboratory Tests 08/15/16 0645: Anion Gap 9, Estimated GFR > 60, BUN/Creatinine Ratio 14.4, Triglycerides 146, Cholesterol 163, LDL Cholesterol, Calc 106, HDL Cholesterol 28 L, Cholesterol/ HDL Ratio 6 H, CBC w Diff NO MAN DIFF REQ, RBC 5.33, MCV 87.0, MCH 28.5, RDW 14.7 H, MPV 7.8, Gran % 49.1, Lymphocytes % 37.5, Monocytes % 10.3 H, Eosinophils % 2.3, Basophils % 0.8, Absolute Granulocytes 4.1, Absolute Lymphocytes 3.1, Absolute Monocytes 0.9 H, Absolute Eosinophils 0.2, Absolute Basophils 0.1, PUBS MCHC 32.8 L 08/14/16 2030: Troponin I < 0.01 08/14/16 1430: Troponin I < 0.01 08/14/16 0822: Anion Gap 13, Estimated GFR > 60, BUN/Creatinine Ratio 10.9, Glucose 101 H, Calcium 9.2, Total Bilirubin 0.8, AST 50, ALT 87 H, Alkaline Phosphatase 70, Creatine Kinase 103, Troponin I < 0.01, Total Protein 7.2, Albumin 3.9, Globulin 3.3, Albumin/Globulin Ratio 1.2, TSH 2.690, CBC w Diff NO MAN DIFF REQ, RBC 5.39 , MCV 86.2, MCH 28.9, RDW 14.3, MPV 7.7, Gran % 46.0, Lymphocytes % 41.7, Monocytes % 9.3, Eosinophils % 2.3, Basophils % 0.7, Absolute Granulocytes 3.4, Absolute Lymphocytes 3.1, Absolute Monocytes 0.7 H, Absolute Eosinophils 0.2, Absolute Basophils 0, PUBS MCHC 33.5 Assessment/Plan Assessment/Plan Assessment: 1. Chest pain, ruled out for myocardial infarction Plan: * Nuclear stress test will be performed as a 2 day protocol. * The stress images will be reviewed. If no significant effusion of the monos are seen on the stress images, then the patient will be discharged to home today , and he will return for rest images tomorrow. Continue telemetry? Yes
--- NOTE | 2016-08-15 13:33 | NUCLEAR MEDICINE REPORT ---
EXERCISE STRESS SPECT MYOCARDIAL PERFUSION IMAGING STUDY WITH GATED SPECT IMAGES: CLINICAL INDICATION: Chest pain. PROCEDURE: Regional myocardial perfusion was assessed using a 1 day protocol. Stress images were obtained on 08/15/2016 following the intravenous administration of 45.0 mCi Tc 99m Myoview. Stress was performed using the standard Mehdi protocol, with the patient reaching a peak heart rate of 93% maximal predicted heart rate. No rest images were obtained. Single photon emission tomographic (SPECT) images were obtained. SPECT images were acquired in a 64 x 64 matrix of 64 projections over 180 degrees. These were reconstructed into standard short axis, horizontal and vertical long axis cardiac projections. FINDINGS: The post stress images demonstrate the left ventricular chamber to be normal in size. There is homogeneous distribution of activity in the left ventricular myocardium with no regions of abnormally decreased activity noted. The stress images were obtained using a gated SPECT technique, which permits visualization of wall motion and calculation of the left ventricular ejection fraction. No left ventricular wall motion abnormalities are noted on the stress study. The calculated left ventricular ejection fraction is 65% on the stress study. No previous study is available for comparison. IMPRESSION: Normal exercise stress myocardial perfusion study with normal left ventricular wall motion and ejection fraction.
== END 2016-08-15 14:26 ==
LOC: ENRESERVDT → CANRESERV → ENRESERVTM → ERH 08:05 → ENPENDDIS 09:29 → ERHI 09:29 → 1NO 09:29 → ERHI 09:29 → 1NO 09:29
PROVIDERS: Emergency Medicine; Student in an Organized Health Care Education/Training Program; ADMIT Specialist
DX: R07.9 Chest pain, unspecified (principal); K51.90 Ulcerative colitis, unspecified, without complications; M54.9 Dorsalgia, unspecified
CPT/HCPCS: 6020; 36415; 78452; 82436; 93005; 93010; 93016; 93017; 96372; A9502; G0378; J1650; J3490